=== PATIENT | female | born 1970 | race Caucasian/White ===

== ENCOUNTER 2018-12-13 08:20 | Day surgery (SDC) | payer MEDICARE, BC ==
--- NOTE | 2018-12-13 06:42 | History and Physical - Ferro ---
CHIEF COMPLAINT/HISTORY OF CHIEF COMPLAINT: This patient presents with a history of intractable lumbar radiculopathy. Due to the failure of therapy a spinal cord stimulator trial was conducted on 11/23/18 with 75-85% pain control. Due to the failure of other therapies and the success of the trial the patient presents today for implantation of a permanent system. The procedure will be considered outpatient although an overnight stay will be evaluated. The potential risks, side effects and complications have been carefully reviewed and discussed. JOB NUMBER: [id number] MTDD
[~2018-12-13 08:20] MED LIST: ACETAMINOPHEN 1,000 MG/100 ML BTL IV ONE; CEFAZOLIN 2 Gram 2 GM/50 ML BAG IVPB ONE; FAMOTIDINE 20MG TABLET PO ONE; MECLIZINE 25 MG TABLET PO ONE; METOCLOPRAMIDE 10 MG TABLET PO ONE
[2018-12-13] MEDS ORDERED: MIDAZOLAM HCL 2MG/2ML VIAL IV ONE (08:21)
[2018-12-13] MEDS ORDERED: BUPIVACAINE 0.5% W/EPI MPF 30 ML VIAL IVP ONE (08:21)
[2018-12-13] MEDS ORDERED: LIDOCAINE 2% MDV (20MG/ML) 20ML VIAL IV ONE (08:21)
[2018-12-13] MEDS ORDERED: LIDOCAINE 1% W/EPI 1:200,000 MPF 30ML SQ ONE (08:21)
[2018-12-13] MEDS ORDERED: HYDROMORPHONE HCL 2 MG/ML VIAL IV ONE (08:21)
[2018-12-13] MEDS ORDERED: CEFAZOLIN 1G VIAL IM ONE (08:21)
[2018-12-13] MEDS ORDERED: 0.9 % SODIUM CHLORIDE 10 ML VIAL IVP ONE (08:21)
[2018-12-13] MEDS ORDERED: FENTANYL PF 100MCG/2ML VIAL IV ONE (08:21)
[2018-12-13] MEDS ORDERED: PROPOFOL 10 MG/ML VIAL IV ONE (08:21)
--- NOTE | 2018-12-14 15:38 | Operative Note ---
DATE OF SURGERY: 12/13/2018 PREOPERATIVE DIAGNOSIS: LUMBAR RADICULOPATHY, ICD-10 CODE = M54.16 AND M54.17. SURGERY: 1. FLUOROSCOPIC-GUIDED LEFT EPIDURAL ACCESS T11-12, CURVED ACCESS EPIMED NEEDLE WITH [id number] INTO THE SPACE. PLACEMENT OF SPINAL CORD STIMULATOR LEAD 1, A [employer] INFINION 16 WITH 6 ELECTRODES POSITIONED LEFT AT T7. 2. FLUOROSCOPIC-GUIDED EPIDURAL ACCESS LEFT T12-L1, CURVED ACCESS EPIMED NEEDLE WITH [id number] INTO THE SPACE. PLACEMENT OF SPINAL CORD STIMULATOR LEAD 2, A [employer] INFINION 16 WITH 6 ELECTRODES POSITIONED RIGHT AT T7. 3. COMPLEX PROGRAMMING OF LEAD 1 OVER 20 MINUTES FOLLOWED BY COMPLEX PROGRAMMING OF LEAD 2 OVER 20 MINUTES. 4. INCISION, SUBCUTANEOUS DISSECTION, REMOVAL OF NEEDLES, AND ANCHORING EACH LEAD TO THE SUPRASPINOUS FASCIA WITH A [employer] LOCKING ANCHOR AND NONABSORBABLE SUTURE. 5. INCISION, SUBCUTANEOUS DISSECTION, AND CREATION OF SUBCUTANEOUS POUCH AT RIGHT POSTERIOR GLUTEAL MARGIN FOR PLACEMENT OF GENERATOR IDENTIFIED A [employer] SCIENTIFIC PROGRAMMABLE, RECHARGEABLE WAVEWRITER. 6. TUNNELING FROM LEAD POUCH INTO GENERATOR POUCH PLACING THE EXTERNAL PORTION OF LEAD 1 AND LEAD 2 INTO GENERATOR POUCH, EACH LEAD INTERFACED TO GENERATOR. 7. ANTIBIOTIC IRRIGATION, BOVIE FOR HEMOSTASIS. CLOSURE OF BOTH INCISIONS USING STRATAFIX SUTURE, #2-0 FASCIA AND #3-0 SKIN. DERMABOND CLOSURE. 8. COMPLEX REPROGRAMMING INTERNAL GENERATOR, RECOVERY ROOM, HOME USE, TWO STIMULATORS, 20 MINUTES. SURGEON: AYDEE LUIS D.O. ANESTHESIA: LOCAL SEDATION. ANESTHESIA PROVIDER: TRANG BEACH CRNA. INDICATIONS: This patient presents with a history of intractable lumbar radiculopathy. Due to the failure of all therapies, a stimulator trial was conducted with 75% to 85% pain control. Due to the failure of all therapies and the success of the trial , the patient presents today for implantation of a permanent system. SURGERY: Intravenous line, vital sign monitoring, IV sedation. prepped and draped sterile technique, patient positioned prone. A sterile prep and a sterile technique, using local for infiltration and imaging for guidance. On the left side, the epidural interspace at T11-12 and 12-1 were marked and then infiltrated with local using a #25 gauge needle. Using a #22 gauge, 3.5 inch needle, the lamina was then infiltrated with local. With the patient appropriately awake and responsive and after the infiltration was done, two separate curved access Epimed needles with [id number] was used to gain access into the epidural space, first at 11-12 and then at T12-L1 without incident. No CSF. No abnormal notes or findings. At 11-12, spinal cord stimulator lead 1, a [employer] Infinion 16 with 6 electrodes was advanced under imaging and positioned left of midline at T7. With the access at 12-1, spinal cord stimulator lead 2, also a [employer] Infinion 16 with 6 electrodes was advanced under imaging and positioned right of the midline at T7. With the patient awake, complex programming was performed over 20 minutes establishing stimulation and pain control to all the appropriate areas. She was questioned while awake and given the option to implant the system, continue to program for better responses, or remove the system. She opted to implant the system. The questions were all repeated with the same response. She was then re- sedated by Anesthesia. The skin above and below the needles was then infiltrated with local. An incision was made and subcutaneous dissection was conducted to the supraspinous fascia. Antibiotic irrigation and Bovie for hemostasis. Once the needles were removed, each lead was anchored to the supraspinous fascia with a [employer] and a locking anchor. At the right posterior gluteal margin, a site picked by the patient for the generator, a [employer] programmable, rechargeable WaveWriter, the skin infiltrated, incision made and subcutaneous dissection was conducted to form a pouch of suitable size and depth for the generator. A tunneling tool was used to pull the leads into the generator pouch and then each lead was interfaced to the generator. Antibiotic irrigation and Bovie for hemostasis. The generator was placed into the pouch, the leads were placed into their pouch, and then both incisions were closed using STRATAFIX suture, #2-0 fascia and #3-0 skin and then a Dermabond closure was used to approximate the edges of both wounds. She was then transported to the Recovery Room stable. No side effects from the procedure or the sedation. When fully awake and alert, complex programming was then performed over 20 minutes in the Recovery Room using the internal generator. We reestablished stimulation to all the appropriate areas. Her request was to be discharged home. She was provided with a prescription for [place] 7.5/325 five a day for seven days and then the instructions given. DISCHARGE INSTRUCTIONS: 1. The sites are to remain clean and dry. She may shower but not sit in water, no tubs.No showering or 2. She will resume her antibiotic, Levaquin, and she will take 500 mg once a day for 14 days. 3. The office will call the patient in 24 to 48 hours to set up a time in 7 to 10 days to evaluate the sites. At that point, all other instructions were provided, numbers to contact with problems given, and she was discharged stable. cc: Dr. Steele JOB NUMBER: [id number] MTDD
--- NOTE | 2018-12-15 10:16 | RADIOLOGY REPORT ---
EXAM: THORACOLUMBAR SPINE HISTORY: STATUS POST SPINAL CORD STIMULATOR IMPLANT. TECHNIQUE: A single frontal view of the thoracolumbar spine was obtained. Comparison: None. FINDINGS: Stimulator pack superimposes the right lower abdominal quadrant. Stimulator leads superimpose the T7 through T9 vertebra. For additional details please refer to the procedural report. IMPRESSION: ABOVE. JOB NUMBER: [id number] MTDD
== END 2018-12-13 12:26 | disposition home or self-care (01) ==
LOC: SUR 08:20
PROVIDERS: ATTEND Pain Medicine Interventional Pain Medicine
DX: M54.16 Radiculopathy, lumbar region (principal); M54.17 Radiculopathy, lumbosacral region; M06.9 Rheumatoid arthritis, unspecified; K21.9 Gastro-esophageal reflux disease without esophagitis
CPT/HCPCS: 72020; 95972; C1820; C1883; J0690

== ENCOUNTER 2019-07-18 07:24 | Day surgery (SDC) | payer MEDICARE, BC ==
--- NOTE | 2019-07-18 06:40 | History and Physical - Ferro ---
CHIEF COMPLAINT/HISTORY OF CHIEF COMPLAINT: This patient presents with a history of an intractable lumbar radiculopathy. Due to the failure of therapy including a spinal cord stimulator trial the patient presents today for an implanted spinal catheter infusion trial using Hydromorphone to determine if the implantation of a permanent system can be of any value in pain control. Patient does have a history of cervical spine fusion, but no lumbar spine fusion. PAST MEDICAL HISTORY: Sleep apnea, hepatitis, and tremor. PAST SURGICAL HISTORY: Includes deep brain stimulator, and cervical spine fusion. MEDICATIONS ON ADMISSION: List to be provided. ALLERGIES: PAXIL AND RITALIN. FAMILY/PSYCHOSOCIAL HISTORY: Social history - Caffeine. Family history - Noncontributory. SYSTEMS REVIEW: The patient seems appropriate in no acute distress. The remainder of the systems review is positive for glasses, reflux and degenerative arthritis. PHYSICAL EXAMINATION: Height is 5'4", weight is 230. No vital signs. HEENT: Within normal limits. LUNGS: Clear. HEART: Rapid and regular. ABDOMEN: Nontender. MUSCULOSKELETAL: Examination of the musculoskeletal system shows the primary pain pattern to be low back and bilateral lower extremity. Deep brain stimulator and generator appears to be in the left clavicular area. Lower extremity functionality shows pain, weakness and tenderness across multiple distributions. Motor and sensory field abnormalities noted. Assistive device utilized. NEUROLOGIC: Cranial nerves are intact. IMPRESSION: INTRACTABLE LUMBAR RADICULOPATHY, ICD-10 CODE M54.16 AND M54.17. PLAN: The patient is here for an implanted spinal catheter infusion trial using Hydromorphone to determine if the implantation of a permanent system can be of any value in pain control. The procedure will require an overnight stay and an epidural blood patchy will be performed as a prophylactic measure against a spinal headache. The patient understands the risks, side effects and complications. She has been in contact with a clinical specialist from [employer] who has also reviewed and discussed risks, side effects and complications. [facility] [id number] [facility]
[~2019-07-18 07:24] MED LIST changes: -ACETAMINOPHEN 1,000 MG/100 ML BTL IV ONE; +ACETAMINOPHEN 1,000 MG/100 ML BTL IVPB ONE; +HYDROMORPHONE PF 2MG/ML AMP 0.008 MG in 0.9 % SODIUM CHLORIDE 10ML VIA 0.996 ML IV ONE; +HYDROMORPHONE PF 2MG/ML AMP 8 MG in 0.9 % SODIUM CHLORIDE 500ML 496 ML IV ONE
[2019-07-18] MEDS ORDERED: CEFAZOLIN 1G VIAL IVP ONE (07:25)
[2019-07-18] MEDS ORDERED: 0.9 % SODIUM CHLORIDE 10 ML VIAL IVP ONE (07:25)
[2019-07-18] MEDS ORDERED: ONDANSETRON HCL IV 4 MG/2 ML VIAL IVP ONE (07:25)
[2019-07-18] MEDS ORDERED: MIDAZOLAM HCL 2MG/2ML VIAL IV ONE (07:25)
[2019-07-18] MEDS ORDERED: FENTANYL PF 100MCG/2ML VIAL IV ONE (07:25)
[2019-07-18] MEDS ORDERED: LIDOCAINE 2% MDV (20MG/ML) 20ML VIAL IV ONE (07:25)
[2019-07-18] MEDS ORDERED: PROPOFOL 10 MG/ML VIAL IV ONE (07:25)
[2019-07-18] MEDS ORDERED: RINGERS SOLUTION,LACTATED 1,000 ML IV ONE (07:45)
[2019-07-18] MEDS ORDERED: LIDOCAINE 1% W/EPI 1:100,000 MDV 20 ML VIAL SQ ONE (09:05)
[2019-07-18] MEDS ORDERED: BUPIVACAINE 0.5% W/EPI MPF 30 ML VIAL SQ ONE (09:05)
[2019-07-18] MEDS ORDERED: ALPRAZOLAM 1 MG TAB PO PRN (09:56)
[2019-07-18] MEDS ORDERED: METOCLOPRAMIDE HCL 10 MG/2 ML VIAL IVP PRN (10:00)
[2019-07-18] MEDS ORDERED: AL HYDROX/MAG HYDROX 30ML UD PO PRN (10:00)
[2019-07-18] MEDS ORDERED: DIPHENHYDRAMINE HCL 25 MG CAPSULE PO PRN (10:00)
[2019-07-18] MEDS ORDERED: HYDROMORPHONE HCL 2 MG/ML VIAL IM PRN ×2 (10:00)
[2019-07-18] MEDS ORDERED: OXYCODONE/APAP 10MG-325MG TABLET PO PRN ×2 (10:00)
[2019-07-18] MEDS ORDERED: FOLIC ACID 1 MG TABLET PO SCH (10:00)
[2019-07-18] MEDS ORDERED: METOCLOPRAMIDE 10 MG TABLET PO PRN (10:00)
[2019-07-18] MEDS ORDERED: TEMAZEPAM 15 MG CAPSULE PO PRN ×2 (10:00)
[2019-07-18] MEDS ORDERED: NALOXONE 0.4 MG/1 ML VIAL IVP PRN (10:00)
[2019-07-18] MEDS ORDERED: HYDROCODONE/APAP 7.5/325MG TABLET PO PRN (10:00)
[2019-07-18] MEDS ORDERED: DIPHENHYDRAMINE HCL 50 MG/ML VIAL IVP PRN ×2 (10:00)
[2019-07-18] MEDS ORDERED: SENNOSIDES/DOCUSATE SODIUM UD CAPSULE PO PRN ×2 (10:00)
[2019-07-18] MEDS ORDERED: ACETAMINOPHEN 325 MG TAB PO PRN ×2 (10:00)
[2019-07-18] MEDS ORDERED: XANAX 1 MG PO PRN (13:00)
[2019-07-18] MEDS: HYDROCODONE/APAP 7.5/325MG TABLET PO PRN ×2 (13:38→19:53)
[2019-07-18] MEDS: CEFAZOLIN 2 Gram 2 GM/50 ML BAG IVPB SCH ×2 (15:49→23:04)
[2019-07-18] MEDS: DIPHENHYDRAMINE HCL 25 MG CAPSULE PO PRN (17:02)
[2019-07-18] MEDS ORDERED: TIZANIDINE 4MG PO SCH (22:00)
[2019-07-18] MEDS ORDERED: CYMBALTA 60 MG MC SCH (22:00)
[2019-07-18] MEDS ORDERED: AMITRIPTYLINE 50 MG TABLET PO SCH (22:00)
[2019-07-18] MEDS ORDERED: ZEGERID 40 MG PO SCH (22:00)
[2019-07-18] MEDS ORDERED: FOLIC ACID 1 MG PO SCH (22:00)
[2019-07-19] MEDS: DIPHENHYDRAMINE HCL 25 MG CAPSULE PO PRN (01:54)
[2019-07-19] MEDS: RINGERS SOLUTION,LACTATED 1,000 ML IV SCH ×2 (06:28→06:29)
[2019-07-19] MEDS: CEFAZOLIN 2 Gram 2 GM/50 ML BAG IVPB SCH (07:32)
[2019-07-19] MEDS: HYDROCODONE/APAP 7.5/325MG TABLET PO PRN (07:54)
[2019-07-19] MEDS ORDERED: VIIBRYD 40MG PO SCH (10:00)
[2019-07-19] MEDS ORDERED: FOLIC ACID 1MG TABLET PO SCH (10:00)
--- NOTE | 2019-07-20 12:28 | RADIOLOGY REPORT ---
EXAM: THORACOLUMBAR SPINE, ONE VIEW HISTORY: PAIN PUMP TRIAL. TECHNIQUE: A single AP supine view of the lower two thirds of the thoracic and the entire lumbar portions of the spine was obtained. Comparison: Spine one view dated 12/13/18. FINDINGS: As demonstrated on the prior examination, a dual lead interspinal stimulator is in place entering the spinal canal near the thoracolumbar junction and with lead tips at the T6-T7 level. These connect to a stimulator generator at the level of the right flank. There has been interval placement of an interspinal catheter which appears to enter the spinal canal at the mid lumbar level. The catheter tip is at the level of the upper T12 vertebral body. No acute osseous abnormality. No lytic or blastic bone lesion. There are mild degenerative changes scattered within the visualized spine most pronounced at the lower lumbar levels. Mild levocurvature of the mid to lower thoracic spine. IMPRESSION: 1. INTERVAL PLACEMENT OF AN INTERSPINAL CATHETER ENTERING THE SPINAL CANAL NEAR THE MID LUMBAR LEVEL AND WITH THE TIP AT THE UPPER T12 VERTEBRAL BODY LEVEL. SURGICAL SKIN PUMA ARE NOTED AT THE MID LUMBAR LEVEL. 2. DUAL LEAD INTERSPINAL STIMULATOR REMAINS IN PLACE. JOB NUMBER: [id number] [facility]
--- NOTE | 2019-07-20 12:52 | Operative Note ---
DATE OF SURGERY: 07/18/2019 PREOPERATIVE DIAGNOSIS: Lumbar radiculopathy ICD10 code M54.16 and M54.17. OPERATION: 1. Fluoroscopic-guided access spinal space at L3-4, placement of thin-walled spinal catheter T11. 2. Diagnostic myelography with radiologic supervision and interpretation. 3. Spinal opioid bolus hydromorphone spinal space 0.004 mg. 4. Incision, subcutaneous dissection, and anchoring of spinal catheter to supraspinous fascia with a [employer]tronic anchor and nonabsorbable suture. 5. Incision, subcutaneous dissection, and creation of subcutaneous pouch at right posterior gluteal margin tunneling spinal catheter into pouch, interface spinal catheter with second catheter component by way of connector. Tunneling second catheter component 6 cm superior exiting skin. 6. Interface external catheter to external pump set to deliver hydromorphone at 0.16 mg a day. 7. Closure of midline incision, Vicryl for fascia, girish for skin. Closure of right posterior pouch using running nylon. 8. Epidural blood patch at L4-5, 20 mL autologous blood, sterile technique, left antecubital. 9. Dressing securing catheter and all connections under sterile dressing. Patient transported to the recovery room stable, flat, pillow under head and knees. No unusual side effects. Full functionality of extremities. No unusual pain. SURGEON: Salinas Schmid DO ANESTHESIA: Local with sedation. ANESTHESIA PROVIDER: Fede Graves INDICATION: This patient presents with a history of intractable lumbar radiculopathy. Due to the failure of all therapies, she is here for an implanted spinal catheter infusion trial with hydromorphone to determine if the implantation of a permanent system can be of any value in pain control. All the implanted catheter trials are staying. PROCEDURE: Intravenous line, vital sign monitoring, IV sedation by AnesthesiaFede. Patient positioned prone. Sterile prep, sterile technique. Under imaging and after the sterile prep, the spinal interspace at L3-4 was marked, infiltrated. A 20-gauge spinal needle paramedian approach, bevel at the long axis. With CSF flow, a thin-walled spinal catheter was advanced, positioned T11. Continued CSF flow through the catheter. Diagnostic myelography was performed. The resulting flow characteristics were smooth linear in the space. Nothing unusual or abnormal with respect to contrast. A bolus of hydromorphone 0.004 mg was given into spinal space. The skin above and below the needle infiltrated, incision made, and subcutaneous dissection was conducted to the supraspinous fascia. The needle was removed and the catheter was anchored at the supraspinous fascia with a [employer]tronic anchor and nonabsorbable suture. At the right flank, which was a site ultimately for the pump corresponding to a stimulator generator pouch, skin infiltrated and a small incision was made. A tunneling tool was used to carry the spinal catheter into this pouch and extend the spinal catheter into the pouch. The spinal catheter was then interfaced with the second catheter component by way of a connector and tunneled from this pouch 6 cm superior exiting the skin. The external catheter was then interfaced to an external pump which was set to deliver hydromorphone at 0.16 mg a day. The midline incision was closed with Vicryl for fascia and girish for skin. The posterior pouch was closed with running nylon. At L4-5, which was one level below the dural puncture, skin infiltrated and an 18-gauge Touhy needle with loss of resistance as used to gain entry into the epidural space. Then 20 mL autologous blood drawn sterile technique from the left antecubital placed onto the field, and then an epidural blood patch was performed at this level with this blood. Needle removed. dressings were placed to secure the catheter and all connections under the sterile dressing. The external pump interfaced to the external catheter was set to deliver hydromorphone at 0.16 mg a day. She was transported to the recovery room flat, pillow under head and knees, stable. No side effects from the procedure. She was awake, alert, appropriate, showing no unusual pain patterns. Full functionality of the extremities. Will monitor and evaluate. She will be kept overnight for observation, discharged in the morning. DISCHARGE INSTRUCTIONS: 1. Sites to remain clean and dry. No showering or bathing in any way that would disrupt dressings. If it happens, contact the clinic. 2. Standard medications resume including the antibiotic Levaquin 500 mg once a day for 14 days. 3. Spinal opioid side effects of respiratory depression, nausea, vomiting, constipation, urinary retention, lightheadedness, or rash have all been discussed and reviewed. If it happens, contact the clinic. 4. Three increases in the office will be scheduled. At the end of 2-week period, she will either implant the full device or remove the implanted catheter. All instructions provided, numbers to contact if problems given. She will be kept overnight flat, slowly elevated after 4 hours, and then monitored until the morning. BIN
== END 2019-07-19 10:00 | disposition home or self-care (01) ==
LOC: SUR 07:24 → MEDSURG 10:10 → SUR 07-19 10:00
PROVIDERS: ATTEND Pain Medicine Interventional Pain Medicine
DX: M54.16 Radiculopathy, lumbar region (principal); M54.17 Radiculopathy, lumbosacral region; M06.9 Rheumatoid arthritis, unspecified; G47.33 Obstructive sleep apnea (adult) (pediatric)
CPT/HCPCS: 72020; J0690; J1170; J2405; J7040; J7120

== ENCOUNTER 2019-08-01 07:26 | Day surgery (SDC) | payer MEDICARE, BC ==
--- NOTE | 2019-08-01 06:50 | History and Physical - Ferro ---
CHIEF COMPLAINT/HISTORY OF CHIEF COMPLAINT: This patient with a history of an intractable lumbar radiculopathy has an implanted spinal catheter infusion trial of Hydromorphone ongoing. The effectiveness has been 75% pain control. Due to the failure of therapies and the success of the implanted catheter technique the patient presents today for implantation of a permanent system. PAST MEDICAL HISTORY: Unchanged. PAST SURGICAL HISTORY: Unchanged. MEDICATIONS ON ADMISSION: List to be provided. ALLERGIES: PAXIL AND RITALIN. FAMILY/PSYCHOSOCIAL HISTORY: Social history - Unchanged. Family history - Unchanged. SYSTEMS REVIEW: The patient is appropriate in no acute distress. The remainder of the systems review is unchanged. PHYSICAL EXAMINATION: Height is 5'4", weight is 230. No vital signs. HEENT: Within normal limits. LUNGS: Clear. HEART: Rapid and regular. ABDOMEN: Nontender. MUSCULOSKELETAL: Examination of the musculoskeletal system shows the dressings for the implanted catheter trial to be intact. External infusion device is working properly. The underlying pain pattern is bilateral low back and bilateral lower extremity. There are mild motor and sensory abnormalities. No assistive device required for ambulation although one is available. NEUROLOGIC: Cranial nerves are intact. IMPRESSION: 1. INTRACTABLE LUMBAR RADICULOPATHY, ICD-10 CODE M54.16 AND M54.17. 2. IMPLANTED SPINAL CATHETER INFUSION TRIAL OF HYDROMORPHONE. PLAN: This patient is doing quite well. She is here for a permanent implant with removal of all of the external components and implant the pump interfacing it to the indwelling catheter. Because of a difficult situation with respect to home the patient will be kept overnight for observation and discharged in the morning. The risks, side effects and complications have been reviewed and discussed. JOB NUMBER: [id number] [facility]
[~2019-08-01 07:26] MED LIST changes: +HYDROMORPHONE HCL IV ONE; -HYDROMORPHONE PF 2MG/ML AMP 8 MG in 0.9 % SODIUM CHLORIDE 500ML 496 ML IV ONE; +SODIUM CHLORIDE 0.9% IV ONE
[2019-08-01] MEDS ORDERED: PROPOFOL 10 MG/ML VIAL IV ONE (07:27)
[2019-08-01] MEDS ORDERED: MIDAZOLAM HCL 2MG/2ML VIAL IV ONE (07:27)
[2019-08-01] MEDS ORDERED: ONDANSETRON HCL IV 4 MG/2 ML VIAL IVP ONE (07:27)
[2019-08-01] MEDS ORDERED: CEFAZOLIN 1G VIAL IVP ONE (07:27)
[2019-08-01] MEDS ORDERED: 0.9 % SODIUM CHLORIDE 10 ML VIAL IVP ONE (07:27)
[2019-08-01] MEDS ORDERED: LIDOCAINE 2% MDV (20MG/ML) 20ML VIAL IV ONE (07:27)
[2019-08-01] MEDS ORDERED: FENTANYL PF 100MCG/2ML VIAL IV ONE (07:27)
[2019-08-01] MEDS ORDERED: HYDROMORPHONE HCL 2 MG/ML VIAL IV ONE (07:27)
[2019-08-01] MEDS ORDERED: RINGERS SOLUTION,LACTATED 1,000 ML IV ONE (08:20)
[2019-08-01] MEDS ORDERED: LIDOCAINE 1% W/EPI 1:200,000 MPF 30ML SQ ONE (10:48)
[2019-08-01] MEDS ORDERED: BUPIVACAINE 0.5% W/EPI MPF 30 ML VIAL SQ ONE (10:48)
[2019-08-01] MEDS ORDERED: HYDROMORPHONE HCL 2 MG/ML VIAL IM ONE (11:26)
[2019-08-01] MEDS ORDERED: ALPRAZOLAM 1 MG TAB PO PRN (12:37)
[2019-08-01] MEDS ORDERED: TEMAZEPAM 15 MG CAPSULE PO PRN (12:45)
[2019-08-01] MEDS ORDERED: ACETAMINOPHEN 325 MG TAB PO PRN (12:45)
[2019-08-01] MEDS ORDERED: DIPHENHYDRAMINE HCL 50 MG/ML VIAL IVP PRN ×2 (12:45)
[2019-08-01] MEDS ORDERED: METOCLOPRAMIDE HCL 10 MG/2 ML VIAL IVP PRN (12:45)
[2019-08-01] MEDS ORDERED: AL HYDROX/MAG HYDROX 30ML UD PO PRN (12:45)
[2019-08-01] MEDS ORDERED: HYDROMORPHONE HCL 2 MG/ML VIAL IM PRN ×2 (12:45)
[2019-08-01] MEDS ORDERED: DIPHENHYDRAMINE HCL 25 MG CAPSULE PO PRN ×2 (12:45)
[2019-08-01] MEDS ORDERED: METOCLOPRAMIDE 10 MG TABLET PO PRN (12:45)
[2019-08-01] MEDS ORDERED: SENNOSIDES/DOCUSATE SODIUM UD CAPSULE PO PRN ×2 (12:45)
[2019-08-01] MEDS ORDERED: OXYCODONE/APAP 10MG-325MG TABLET PO PRN ×2 (12:45)
[2019-08-01] MEDS ORDERED: HYDROCODONE/APAP 7.5/325MG TABLET PO PRN (12:45)
[2019-08-01] MEDS: CEFAZOLIN 2 Gram 2 GM/50 ML BAG IVPB SCH (17:49)
[2019-08-01] MEDS: HYDROCODONE/APAP 7.5/325MG TABLET PO PRN ×2 (17:49→21:22)
[2019-08-01] MEDS: RINGERS SOLUTION,LACTATED 1,000 ML IV SCH ×2 (20:35→21:15)
[2019-08-01] MEDS ORDERED: TIZANIDINE HCL 4 MG TABLET PO SCH (22:00)
[2019-08-01] MEDS ORDERED: PANTOPRAZOLE SODIUM 40 MG TABLET PO SCH (22:00)
[2019-08-01] MEDS ORDERED: AMITRIPTYLINE 25 MG TABLET PO SCH (22:00)
[2019-08-01] MEDS ORDERED: CALCIUM CARBONATE 500 MG TAB.CHEW PO SCH (22:00)
[2019-08-02] MEDS: CEFAZOLIN 2 Gram 2 GM/50 ML BAG IVPB SCH ×2 (02:11→11:28)
[2019-08-02] MEDS: HYDROCODONE/APAP 7.5/325MG TABLET PO PRN (02:11)
[2019-08-02] MEDS: RINGERS SOLUTION,LACTATED 1,000 ML IV SCH (05:08)
--- NOTE | 2019-08-02 08:20 | Operative Note ---
DATE OF SURGERY: 08/01/2019 PREOPERATIVE DIAGNOSES: 1. Intractable lumbar radiculopathy, ICD10 code M54.16 and M54.17. 2. Nonfunctional spinal cord stimulator 2 leads internal generator. 3. Implanted spinal catheter infusion trial of hydromorphone. OPERATION: 1. Fluoroscopic-guided incision, subcutaneous dissection, and removal of spinal cord stimulator x2 implanted with internal pulse generator x1. 2. Incision, subcutaneous dissection, and removal of external spinal catheter at right flank. 3. Incision, subcutaneous dissection, and creation of subcutaneous pouch right flank for placement of pump identified as [employer] 20 mL programmable. 4. Resection implanted spinal catheter revision interfaced with second catheter component by way of connector. 5. Interface revised catheter with pump 20 mL programmable prefilled hydromorphone 1 mg/mL. Pump/catheter combination placed into pouch right posterior gluteal margin. 6. Placement of curved 24-gauge Frazier needle into access port programmable pump in pouch aspirating and clearing catheter of opioid and CSF mixture. 7. Diagnostic myelography with radiologic supervision and interpretation using catheter access port injecting contrast. Appropriate flow characteristics. 8. Anchoring of pump to posterior fascia nonabsorbable suture and then closure of pump pouch using Stratafix suture 2-0 fascia, 3-0 skin. 9. Closure of spinal cord stimulator pouch using Stratafix 2-0 fascia, 3-0 skin. Dermabond closure of both incisions. 10. Programming of pump to deliver by continuous infusion of hydromorphone at 0.5 mg a day. SURGEON: Salinas Schmid DO ANESTHESIA: Local with sedation. ANESTHESIA PROVIDER: Fede Graves INDICATION: This patient presents with an ongoing implanted spinal catheter infusion trial hydromorphone with 75% plus pain control. She also has a nonfunctional 2-lead spinal cord stimulator internal generator. She is here for pump implant and removal of spinal cord stimulator and generator. PROCEDURE: Intravenous line, vital sign monitoring, IV sedation. Prepped and draped in sterile technique. Patient positioned prone. The midline incision for the 2 spinal cord stimulators was infiltrated, incision made, subcutaneous dissection was conducted to the deep fascia. The sutures were removed. The anchoring devices removed and the 2 leads removed intact. All 32 electrodes, 16 electrodes each lead were accounted for. Antibiotic irrigation. Bovie for hemodialysis. The midline incision was closed using Stratafix suture, 2-0 fascia, 3-0 skin. Dermabond closure. At the right posterior gluteal margin, a small flank pouch for the external spinal catheter to the pump was noted. Incision made, subcutaneous dissection was conducted to the interface between the permanent spinal catheter internally and the external catheter. This connection was clamped, cut, and the external catheter was removed by pulling away from the pouch. The pouch was then widened and deepened to accommodate the pump. Within the superficial part of the pouch, the spinal cord stimulator generator was found, exteriorized, and then removed along with its connection to the previously removed leads. The pouch was widened and deepened to accommodate the pump, 20 mL programmable Medtronic. Antibiotic irrigation and Bovie for hemodialysis. The pump was placed onto the field prefilled hydromorphone 100 mg/mL. The indwelling spinal catheter was then revised and intersected by way of a connector with a second catheter component. This second catheter component was then interfaced to the pump. The pump was then placed into the formed pouch and secured to the fascia with nonabsorbable suture. A curved 24-gauge Frazier needle was inserted into the access port and then the revised catheter which had been interfaced to the pump was then aspirated through the access port 1 mL clearing the catheter of opioid and CSF mixture. Contrast was then injected through the access port. The resulting myelogram demonstrated appropriate flow characteristics in the spinal space. The tip of the catheter at T12. The pump catheter connection as well as all catheter components were evaluated under imaging and found to be intact. The new pump catheter combination fully functional. The incision was then closed using Stratafix suture, 2-0 fascia, 3-0 skin, Dermabond closure. The pump was then programmed to delivery by continuous infusion hydromorphone at 0.5 mg a day. She was transported to the recovery room stable. There were no side effects from the procedure or sedation. She will be overnight for observation and discharged in the morning. DISCHARGE INSTRUCTIONS: 1. Sites to remain clean and dry. No showering or bathing in any way that would disrupt dressings. If it happens, contact the clinic. 2. Standard medications resumed including the antibiotic Levaquin 500 mg once a day for 14 days. 3. Office to contact the patient in 12-24 hours to set up a time in 7-10 days to evaluate the sites. Until then, she is to keep her activities controlled. Limit bend, lift, push, pull. Spinal opioid side effects of respiratory depression, nausea, vomiting, constipation, urinary retention, lightheadedness, or rash have all been discussed and reviewed. She will be seen in the office. BIN
[2019-08-02] MEDS ORDERED: RINGERS SOLUTION,LACTATED 1,000 ML IV PRN (09:24)
== END 2019-08-02 13:10 | disposition home or self-care (01) ==
LOC: SUR 07:26 → MEDSURG 11:56 → SUR 08-02 13:10
PROVIDERS: ATTEND Pain Medicine Interventional Pain Medicine
DX: M54.16 Radiculopathy, lumbar region (principal); M54.17 Radiculopathy, lumbosacral region; T85.193A Other mechanical complication of implanted electronic neurostimulator, generator, initial encounter; M06.9 Rheumatoid arthritis, unspecified; G47.33 Obstructive sleep apnea (adult) (pediatric)
CPT/HCPCS: 62367; C1755; C1776; J0690; J2405; J7120